=== PATIENT | male | born 1980 | race Caucasian/White ===

== ENCOUNTER → 2016-12-05 | Outpatient (CLI) | payer BC ==
[2015-04-28 04:35] VITALS: BP 142/77
[~2016-12-05] MED LIST: MIRT30TA3 PO; TEST200V3 IM
--- NOTE | 2016-12-06 10:38 | RAD ---
Indication hematuria. Grayscale imaging targeted to the kidneys was performed. No similar imaging is available. The right kidney measures 11.5 x 6.7 x 4.6 cm and appears normal. No hydronephrosis or mass is seen. The left kidney measures 11.6 x 5.4 x 6.8 cm. The calyces are prominent suggesting mild to moderate hydronephrosis associated with the left kidney. The etiology is unclear. There is a possible extrarenal pelvis on the left. The urinary bladder appears grossly unremarkable. IMPRESSION: Findings as outlined above compatible with hydronephrosis associated with the left kidney. The etiology is not clear. Additional evaluation with CT may be useful. The right kidney appears unremarkable
== END | disposition home or self-care (01) ==
LOC: US 15:53
PROVIDERS: ATTEND Family Medicine
DX: R31.9 Hematuria, unspecified (principal)
CPT/HCPCS: 76770

== ENCOUNTER → 2016-12-24 | Outpatient (CLI) | payer BC ==
[2015-04-28 04:35] VITALS: BP 142/77
[~2016-12-24] MED LIST changes: +IOHEXOL 300 MG/ML 100ML VIAL. IV ONE
--- NOTE | 2016-12-24 15:49 | KCIC ---
PROCEDURE CT abdomen and pelvis with without contrast, CT urogram. HISTORY Microscopic hematuria. Left hydronephrosis seen on ultrasound. TECHNIQUE Helical CT imaging of the abdomen and pelvis is performed pre contrast. After 95 cc of Omnipaque 300 IV contrast, helical CT acquisition of the kidneys is performed during nephrographic phase. A 10 minutes delayed phase acquisition of the abdomen and pelvis is then acquired. PQRS: One or more the following individualized dose reduction techniques were utilized for the study: 1. Automated exposure control. 2. Adjustment of the mA and/or kV according to patient size. 3. Use of iterative reconstruction technique. COMPARISON Renal ultrasound December 05, 2016, [facility]. FINDINGS No renal, ureteral, or bladder calculus. No perinephric stranding. The left ureter in the pelvis is dilated. Kidneys enhance symmetrically. There is moderate left caliectasis and hydroureter. The left renal pelvis is not dilated. The right distal ureter is mildly dilated. Both ureters taper at the ureterovesicular junction. Ureteral jets are seen bilaterally. Bladder is not well distended. There is mild bladder wall thickening. Prostate size is normal. Minimal dependent atelectasis or scarring in the lower lobes. Cardiac size normal. Gallbladder is contracted, limiting evaluation. The liver, spleen, pancreas, adrenal glands, and abdominal aorta are normal. Stomach distended with heterogeneous material and fluid. Evaluation of bowel may be limited without oral contrast. Tiny fat containing umbilical hernia. No dilated small bowel. The appendix is normal. Scattered stool in the colon. No evidence of colitis. No abdominal adenopathy or free fluid. No pelvic free fluid. No acute bone abnormality. IMPRESSION 1. There is left caliectasis and moderate left hydroureter. There is mild right hydroureter distally. Both renal pelves are normal. There is no right caliectasis. No renal cortical atrophy is seen. Considerations include congenital megacalices and megaureter. No CT evidence of mechanical obstruction. Perhaps a recently passed stone on the left could produce this appearance. Renal scintigraphy may be useful. 2. Mild diffuse bladder wall thickening. Considerations include pseudo thickening due to underdistention, nonspecific cystitis, or chronic bladder outlet obstruction. Electronically signed by: Jose Lou MD (Dec 24, 2016 15:46:58)
== END | disposition home or self-care (01) ==
LOC: KCIC CT 14:02
PROVIDERS: ATTEND Nurse Practitioner Occupational Health
DX: R31.29 Other microscopic hematuria (principal)
CPT/HCPCS: 74178; 82565; Q9967

== ENCOUNTER → 2017-01-20 | Outpatient (CLI) | payer BC ==
[2015-04-28 04:35] VITALS: BP 142/77
[~2017-01-20] MED LIST changes: +FUROSEMIDE 40 MG/4 ML VIAL. IVP ONE; -IOHEXOL 300 MG/ML 100ML VIAL. IV ONE
--- NOTE | 2017-01-20 17:20 | RAD ---
Radionuclide renal scan with Lasix, 01/20/2017: History: Hydronephrosis Images of the kidneys was performed following IV injection of 10.0 mCi of technetium 99m MAG3. There is prompt symmetric perfusion of both kidneys. There appears to be prompt parenchymal uptake of the radionuclide by both kidneys. 40 mg of Lasix was administered IV 15 minutes into the exam. There is good clearance of activity from the right renal parenchyma and collecting system. On the left there is continued pooling of activity in the dilated left renal collecting system throughout the exam. The left renal collecting system activity diminished following the Lasix administration. Mildly prominent left ureteral activity during the initial stages of the exam also diminished following the Lasix administration. Bladder activity is evident. At the end of the exam the bladder appears to be distended. IMPRESSION: 1. Normal right kidney. 2. Prompt uptake of the radionuclide by the left kidney with delayed clearance of activity from the distended left renal collecting system. The previous CT urogram demonstrated left ureteral dilatation. Primary megaureter is suspected. 3. Distended urinary bladder.
== END | disposition home or self-care (01) ==
LOC: NM 13:06
PROVIDERS: ATTEND Urology
DX: N13.30 Unspecified hydronephrosis (principal)
CPT/HCPCS: 78708; 96374; 96375; A9562; J1940

== ENCOUNTER 2017-05-24 11:29 | Emergency (ER) | payer BC ==
[~2017-05-24] VITALS: Ht 175.3 cm; Wt 86.2 kg
[~2017-05-24 11:29] MED LIST changes: -FUROSEMIDE 40 MG/4 ML VIAL. IVP ONE
[2017-05-24] MEDS ORDERED: HYDR-2758 PO (12:37)
[2017-05-24] MEDS ORDERED: NAPR500T PO (12:37)
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
[2017-05-24] MEDS ORDERED: HYDROcodone/APAP 5/325MG 1 TAB TABLET PO ONE (12:45)
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
[2017-05-24 13:15] VITALS: BP 136/90
== END 2017-05-24 13:16 | disposition home or self-care (01) ==
LOC: ER 11:29
DX: S42.021A Displaced fracture of shaft of right clavicle, initial encounter for closed fracture (principal); S46.911A Strain of unspecified muscle, fascia and tendon at shoulder and upper arm level, right arm, initial encounter; R00.0 Tachycardia, unspecified; F17.210 Nicotine dependence, cigarettes, uncomplicated; F32.9 Major depressive disorder, single episode, unspecified; V86.59XA Driver of other special all-terrain or other off-road motor vehicle injured in nontraffic accident, initial encounter; Y93.55 Activity, bike riding; Y92.410 Unspecified street and highway as the place of occurrence of the external cause; Y99.8 Other external cause status
CPT/HCPCS: 73000; 73030; 99284

== ENCOUNTER → 2018-12-22 | Outpatient (CLI) | payer BC ==
[~2018-12-22] MED LIST changes: +HYDR-2761 PO; +NAPR-683 PO
--- NOTE | 2018-12-22 16:08 | KCIC ---
EXAM: AP, lateral and lumbosacral spot views of the lumbar spine DATE: 12/22/2018 12:00 AM INDICATION: Low back pain for 1-2 years COMPARISON: No Prior FINDINGS: There are 5 nonrib-bearing lumbar-type vertebral bodies. Vertebral body heights are preserved. Normal lumbar lordosis. No spondylolisthesis. Intervertebral disc heights are preserved. Minimal facet degenerative change at L4-5 and L5-S1. Moderate colonic stool content is seen throughout the colon. IMPRESSION: No evidence for acute fracture or subluxation. Electronically signed by: Can Nolan MD (12/22/2018 4:06 PM) [id number]
--- NOTE | 2018-12-22 16:10 | KCIC ---
Exam: Thoracic spine Date: 12/22/2018 12:00 AM CLINICAL HISTORY: Back pain for 1-2 years COMPARISON: None available. FINDINGS: AP and lateral views of the thoracic spine submitted. There is severe superimposed artifact at the cervical thoracic junction on the lateral view per techniques. Exam shows preserved disc height throughout. Negative degenerative/proliferative changes. Vertebral body heights are preserved, no compression fracture. Negative malalignment. Negative focal paraspinal line deviation/hematoma. Old right rib fractures are seen. Decreased bone mineral density. IMPRESSION: No evidence for acute fracture or subluxation. Electronically signed by: Can Nolan MD (12/22/2018 4:07 PM) [facility]2
== END | disposition home or self-care (01) ==
LOC: KCIC 15:08
PROVIDERS: ATTEND Nurse Practitioner Gerontology
DX: S22.41XD Multiple fractures of ribs, right side, subsequent encounter for fracture with routine healing (principal); M47.896 Other spondylosis, lumbar region; M47.897 Other spondylosis, lumbosacral region; X58.XXXD Exposure to other specified factors, subsequent encounter
CPT/HCPCS: 72072; 72100

== ENCOUNTER → 2019-10-28 | Outpatient (CLI) | payer BC ==
--- NOTE | 2019-10-28 14:07 | RAD ---
Right lower extremity venous duplex study 10/28/2019 2:04 PM Clinical History: Right leg pain x2 weeks Technique: Using a combination of real time ultrasound imaging and color-flow and pulse Doppler imaging techniques, including spectral analysis, graded compression and augmentation, duplex evaluation of the deep venous system of the right lower extremity was performed. Multiple images were obtained. Findings: There is no sonographic evidence of deep venous thrombosis involving the visualized deep venous structures of the right lower extremity Impression: No evidence of deep venous thrombosis involving the right lower extremity Electronically signed by: David De La O MD (10/28/2019 2:04 PM) [id number]
== END | disposition home or self-care (01) ==
LOC: US 13:31
PROVIDERS: ATTEND Family Medicine
DX: M79.604 Pain in right leg (principal)
CPT/HCPCS: 93971

== ENCOUNTER → 2019-10-31 | Outpatient (CLI) | payer BC ==
--- NOTE | 2019-10-31 16:44 | RAD ---
Right lower extremity arterial duplex ultrasound 10/31/2019 INDICATION: Right lower extremity pain STUDY: None Discussion: Ultrasound evaluation of the major arteries of the right lower extremity was performed including color Doppler imaging spectral analysis. Normal waveform morphology and velocities are seen throughout the major arteries of the right lower extremity. No high-grade visual stenosis is identified color Doppler imaging. No focal elevation in velocity suggestive of hemodynamically significant stenosis are seen. IMPRESSION: Normal sonographic appearance of the major arteries of the right lower extremity Electronically signed by: David De La O MD (10/31/2019 4:41 PM) [id number]
== END | disposition home or self-care (01) ==
LOC: US 15:43
PROVIDERS: ATTEND Family Medicine
DX: M79.604 Pain in right leg (principal)
CPT/HCPCS: 93926

== ENCOUNTER → 2020-03-28 | Outpatient (CLI) | payer BC ==
--- NOTE | 2020-03-28 10:16 | KCIC ---
EXAM: Lumbar spine, 5 views. HISTORY: Pain. COMPARISON: 12/22/2018 FINDINGS: 5 views of the lumbar spine are obtained. There is no listhesis. The vertebral bodies are normal in height and the disc spaces are preserved. IMPRESSION: No acute osseous finding. Electronically signed by: Юлия Doll MD (03/28/2020 10:13 AM) [id number]
== END ==
LOC: KCIC 09:28
PROVIDERS: ATTEND Family Medicine
DX: M54.5 Low back pain (principal)
CPT/HCPCS: 72110

== ENCOUNTER → 2020-03-28 | Outpatient (CLI) | payer BC ==
--- NOTE | 2020-03-28 12:42 | KCIC ---
MR of the right knee HISTORY: Generalized right knee pain since October. TECHNIQUE: Routine multiplanar sequences are obtained. FINDINGS: No evidence of medial or lateral meniscal tear. The anterior and posterior cruciate ligaments are intact. Medial collateral ligament is intact. Iliotibial band unremarkable. Fibular collateral ligament, biceps femoris tendon and popliteus tendon are intact. Extensor mechanism is intact. Trace joint effusion. No significant Morris's cyst. Articular cartilage is intact. No advanced DJD. No acute soft tissue abnormality. IMPRESSION: No acute abnormality or internal derangement. Electronically signed by: Fritz Cordova MD (03/28/2020 12:39 PM) [id number]
== END ==
LOC: KCIC MRI 09:23
PROVIDERS: ATTEND Orthopaedic Surgery
DX: M25.561 Pain in right knee (principal)
CPT/HCPCS: 73721

== ENCOUNTER → 2020-12-04 | Outpatient (CLI) | payer BC ==
[2020-10-02 15:45] VITALS: BP 142/97
[~2020-12-04] MED LIST changes: +OXYC1TAB15 PO; +PRED20TA PO
--- NOTE | 2020-12-04 16:57 | RAD ---
Whole body bone scan Clinical indications: Low back pain for 5 years. Right lower leg pain for one year. No known injury. COMPARISON: No previous bone scan available. TECHNIQUE: After IV infusion of 25.2 mCi of technetium 99m MDP, delayed anterior posterior planar gilberto ges of the whole body were performed. FINDINGS: Bilateral renal function is evident. Multiple foci of uptake are seen involving the upper p osterior right rib cage in a linear fashion consistent with rib fractures. There is a focus of uptake involving the mid aspect of the right clavicle consistent with a clavicular fracture. No other abnor mal uptake is seen. No pattern of uptake is seen to indicate osseous metastatic disease. No abnormal uptake is seen involving the spine or either leg. IMPRESSION:. Upper right posterior rib fractures. Right clavicular fracture. Electronically signed by: Jose Ugalde MD (12/04/2020 4:54 PM) [id number]
== END ==
LOC: NM 11:34
PROVIDERS: ATTEND Physician Assistant
DX: S22.41XA Multiple fractures of ribs, right side, initial encounter for closed fracture (principal); S42.001A Fracture of unspecified part of right clavicle, initial encounter for closed fracture; M54.5 Low back pain; M40.00 Postural kyphosis, site unspecified; X58.XXXA Exposure to other specified factors, initial encounter; Y93.89 Activity, other specified; Y92.89 Other specified places as the place of occurrence of the external cause; Y99.8 Other external cause status
CPT/HCPCS: 78306; A9503

== ENCOUNTER → 2020-12-18 | Outpatient (CLI) | payer BC ==
[2020-10-02 15:45] VITALS: BP 142/97
--- NOTE | 2020-12-19 08:39 | KCIC ---
EXAMINATION: Magnetic resonance imaging (MRI) of the lumbar spine without contrast 12/18/2020 3:30 PM HISTORY: Chronic low back pain, right radiculopathy TECHNIQUE: Multiplanar multi-weighted MRI of the lumbar spine was performed without intravenous contr ast using the standard lumbar spine protocol. Contrast information: None administered. COMPARISON: None available. FINDINGS: The alignment of the lumbar spine is normal. Vertebral bodies demonstrate normal signal intensity on all sequences. There are no compression fractures. The conus medullaris terminates at the level of L1. The distal spinal cord signal intensity is normal. Intervertebral disks have normal height and signal intensity. There are no annular fissures identified. Limited views of the abdomen and pelvis show no soft tissue abnormality. The aorta is normal. L1-L2: The disc is normal in configuration. There is no facet arthropathy. There is no neuroforaminal stenosis. There is no spinal canal stenosis. L2-L3: The disc is normal in configuration. There is no facet arthropathy. There is no neuroforaminal stenosis. There is no spinal canal stenosis. L3-L4: The disc is normal in configuration. There is no facet arthropathy. There is no neuroforaminal stenosis. There is no spinal canal stenosis. L4-L5: The disc is normal in configuration. There is no facet arthropathy. There is no neuroforaminal stenosis. There is no spinal canal stenosis. L5-S1: The disc is normal in configuration. There is mild facet arthropathy. There is no neuroforamin al stenosis. There is no spinal canal stenosis. IMPRESSION: No significant disc herniation, neuroforaminal or spinal canal stenosis. Electronically signed by: Susan Frank MD (12/19/2020 8:37 AM) [id number]
== END ==
LOC: KCIC MRI 15:18
PROVIDERS: ATTEND Physician Assistant
DX: M47.27 Other spondylosis with radiculopathy, lumbosacral region (principal)
CPT/HCPCS: 72148

== ENCOUNTER → 2021-02-06 | Outpatient (CLI) | payer BC ==
[2020-10-02 15:45] VITALS: BP 142/97
[~2021-02-06] MED LIST changes: +CLON2TAB9 PO; +FERR-36 PO; +GABA-585 PO; +IOHEXOL 180 MG/ML 10 ML VIAL. ONE; +TRAZ-118 PO; +methylPREDNISolone ACETATE 40 MG/ML VIAL. ONE; +methylPREDNISolone ACETATE 80 MG/ML VIAL. ONE
--- NOTE | 2021-02-06 15:53 | PDOC1 ---
INITIAL PAIN CONSULT DATE OF SERVICE: DOS: DATE: 02/06/21 TIME: 15:48 CHIEF COMPLAINT: Chief Complaint: Low back and right lower extremity pain HISTORY OF PRESENT ILLNESS: 41-year-old male presents with history of pain low back right lower extremity for 5 years. Patient reports no specific injury or accident that he is aware but is been getting worse over the past 2 years in the low back with radiating pain the right lower extremity mostly in the anterior medial aspect of the thigh and medial anterior aspect of the lower leg to the ankle patient reports is worse with walking standing changing positions he has had physical therapy recently which was not helpful and is doing some stretching and strength exercises from that also taking hydrocodone which does decrease the pain but only by about 30%. Patient reports it wakes him from sleep at night least once or twice and not effective bowel bladder control but does affect his ability to walk although is not use any assistive devices. 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 which exacerbates the pain significantly especially in th e back. Patient reports the pain is constant sharp shooting in the leg aching in the back change during the day with activity better with sitting or laying down but again waking her from sleep frequently. Patient rates his disability rating 0-10 10 being worst is a 9 with family home responsibilities recreation and occupational activities 5 with social activity and self-care activity 6 with sexual behavior 8 with life support activities. Patient have an MRI scan lumbar spine showing no significant disc herniations neuroforaminal or spinal canal stenosis with some mild facet arthropathy at the L5-S1 level. PAST MEDICAL HISTORY: PMH: Arthritis, cigarette smoking PREVIOUS SURGERIES: Past Surgical Hx: None CURRENT MEDICATIONS: Current Meds: Active Scripts Medications Dose Route/Sig Max Daily Dose Days Date Category Dose Instructions Percocet 5-325 Mg Tablet (Oxycodone/Acetaminophen) 1 Each Tablet 0.5-1 Tab PO PRN Q6HRS PRN 10/02/20 Rx Prednisone 20 Mg Tablet 2 Tab PO DAILY 10/02/20 Rx Start this prescription tomorrow, Thu10/03/2020 Naprosyn (Naproxen) 500 Mg Tablet 1 Tab PO BID 05/24/17 Rx Hydrocodone-Apap 5-325 (Hydrocodone Bit/Acetaminophen) 1 Each Tablet 1-2 Tab PO PRN Q6HRS PRN 5 05/24/17 Rx Testosterone Cypionate 200 Mg/1 Ml Vial 1 Ml IM Q2WKS 12/24/16 Reported Mirtazapine 30 Mg Tablet 1 Tab PO QHS 12/24/16 Reported ALLERGIES; Allergies: Coded Allergies: No Known Drug Allergies (Unverified , 05/24/17) FAMILY HISTORY: Family Hx: Cancers SOCIAL HISTORY: Social Hx: Patient drinks 1-2 beers nightly smokes electronic cigarettes and has for 25 years does not use any illegal illicit recreational drugs is single lives with his 3 children locally in [facility] 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 REVIEW OF SYSTEMS: ROS: Positive for those items mentioned in history of present illness, all systems are reviewed, otherwise negative ,and are complete full and well-documented on patient's chart. PHYSICAL EXAM: VS: Blood pressure is 111/64 pulse 70 respirations 16 temperature 97.9 F height is 5 8 inches weight is 194 pounds PE: PHYSICAL EXAMINATION: GENERAL: The patient is awake, alert, oriented, appropriate, very pleasant demeanor HEENT: Shows normocephalic, atraumatic. Extraocular movements are intact and symmetrical. Oral cavity: Mucous membranes moist and pink. Dentition is int act. NECK: Shows anterior throat supple without palpable lymphadenopathy noted. Swallow reflex symmetrical. CHEST: Shows normal on inspection. Breath sounds are clear bilaterally, no rales or rhonchi or wheezes. HEART: Shows S1, S2 clear. No murmurs auscultated. ABDOMEN: Soft, nontender, nondistended, obese. No palpable organomegaly is noted. No rebound or guarding demonstrated. BACK: Shows spine grossly in the midline. Normal-appearing cervical lordotic curvature. There is slightly increased thoracic kyphosis, some minor flattening of the lumbar lordotic curvature. Lumbar paraspinous muscles show symmetrical on inspection, on palpation shows some moderate tenderness diffusely throughout the upper, middle and lower distribution of the paraspinous muscles bilaterally and also into the lower thoracic paraspinous musculature, firm and tender, but without specific trigger points, without radiation of pain. The patient has good rotational motion of the lumbar spine, both laterally as well as extension and flexion without significant difficulty. No tenderness over the spinous processes, sacrum or sacroiliac regions. EXTREMITIES: Lower extremities show deep tendon reflexes 2+ in the patellar and tendo calcaneus tendons. Motor exam is 4 on a scale of 5 with right dorsiflexion, extension, quadriceps and hamstring flexion and 5/5 on the left. Peripheral pulses are 1 posterior tibial. No peripheral edema is noted bilaterally. Lower extremities are warm and dry to touch, equal in color and appearance. Straight leg raise noted to be pot on the right about 45 degrees, left side is negative. Gaenslen's and Ashwin's maneuvers are negative bilaterally as well. The patient is able to stand, stand on his toes without significant difficulty or loss of balance walks with a slight favoring gait favoring the right lower extremity without any assistive devices.. SKIN: Shows warm and dry, good turgor. No edema. No sores, rashes or bruising throughout. IMPRESSION: Impression: 41-year-old male with long history of low back right lower extremity pain with some radicular qualities MRI scan lumbar spine as noted History of arthritis Cigarette smoking Plan: Options discussed with patient including conservative management physical therapies interventional techniques. Patient would like to pursue interventional techniques. We discussed a lumbar epidural steroid injection using descriptions as well as anatomical models described procedure. Risks were discussed including but not limited to: Bleeding, infection, possibility of epidural hematoma and subsequent neurological compromise, dural puncture, headaches, spinal cord and/or nerve damage, side effects of steroid medication, and poor results regarding pain control. Patient understands and wished to proceed. Patient will return to clinic in approximate 2 weeks for follow-up was counseled as return appointment activity level and side effects to be aware of. Procedure is lumbar epidural steroid injection under local anesthetic using sterile prep and drape at the L5-S1 level using C-arm fluoroscopic guidance in both AP and lateral views medications injected is 120 mg Depo-Medrol + 10 mL preservative-free normal saline and 2 mL contrast- condition at discharge is stable patient tolerated procedure well had no complications. MEG NEFF MD Feb 06, 2021 15:53
== END | disposition home or self-care (01) ==
LOC: PNCL 13:15
PROVIDERS: ATTEND Anesthesiology
DX: M54.5 Low back pain (principal); M79.604 Pain in right leg; M19.90 Unspecified osteoarthritis, unspecified site; Z87.891 Personal history of nicotine dependence; Z79.899 Other long term (current) drug therapy; Z72.89 Other problems related to lifestyle
CPT/HCPCS: 62323; J1030; J1040; Q9965